=== PATIENT | female | born 2000 | race Native Hawaiian/Other Pacific Islander ===

== ENCOUNTER 2021-10-25 20:41 | Emergency (ER) | payer OTHER ==
[~2021-10-25] VITALS: Ht 157.5 cm; Wt 80.7 kg
[2021-10-25 20:45] VITALS: TEMP 98.8
[2021-10-25 21:25] VITALS: BP 113/67
== END 2021-10-25 21:25 | disposition home or self-care (01) ==
LOC: ED 20:41
DX: K21.9 Gastro-esophageal reflux disease without esophagitis (principal)
CPT/HCPCS: 99282

== ENCOUNTER 2021-12-28 12:59 | Emergency (ER) | payer OTHER ==
[~2021-12-28] VITALS: Ht 157.5 cm; Wt 80.7 kg
[2021-12-28 13:11] VITALS: TEMP 97.7
[2021-12-28 13:50] VITALS: BP 100/62
== END 2021-12-28 13:52 | disposition home or self-care (01) ==
LOC: ED 12:59
DX: R10.33 Periumbilical pain (principal)
CPT/HCPCS: 96372; 99282; J1885

== ENCOUNTER 2021-12-29 06:50 | Emergency (ER) | payer OTHER ==
[~2021-12-29] VITALS: Ht 157.5 cm; Wt 59.0 kg
[2021-12-29 06:55] VITALS: BP 126/100; TEMP 96.1
== END 2021-12-29 07:45 | disposition still patient (30) ==
LOC: ED 06:50
DX: R10.84 Generalized abdominal pain (principal); R11.2 Nausea with vomiting, unspecified; R68.83 Chills (without fever); Z53.29 Procedure and treatment not carried out because of patient's decision for other reasons
CPT/HCPCS: 99282

== ENCOUNTER 2022-02-13 20:35 | Emergency (ER) | payer OTHER ==
[~2022-02-13] VITALS: Ht 157.5 cm; Wt 73.5 kg
[2022-02-13 21:24] VITALS: BP 121/83; TEMP 99.4
== END 2022-02-13 21:24 | disposition home or self-care (01) ==
LOC: ED 20:35
DX: S90.862A Insect bite (nonvenomous), left foot, initial encounter (principal); S90.861A Insect bite (nonvenomous), right foot, initial encounter; W57.XXXA Bitten or stung by nonvenomous insect and other nonvenomous arthropods, initial encounter; Y92.096 Garden or yard of other non-institutional residence as the place of occurrence of the external cause
CPT/HCPCS: 99282

== ENCOUNTER 2022-10-14 18:47 | Emergency (ER) | payer OTHER ==
[~2022-10-14] VITALS: Ht 157.5 cm; Wt 68.0 kg
[2022-10-14 18:50] VITALS: BP 114/63; TEMP 98.3
== END 2022-10-14 19:37 | disposition home or self-care (01) ==
LOC: ED 18:47
DX: H60.8X2 Other otitis externa, left ear (principal); H92.02 Otalgia, left ear; Z3A.40 40 weeks gestation of pregnancy
CPT/HCPCS: 99282